=== PATIENT | male | born 2000 | race Caucasian/White ===

== ENCOUNTER 2024-04-01 15:53 | Emergency (ER) | payer OTHER, BC ==
[2024-04-01 15:59] VITALS: RESP 20; TEMP 98.6
--- NOTE | 2024-04-01 16:10 | ED ---
General Adult HPI - General Source: patient, RN notes reviewed Mode of arrival: ambulatory Limitations: no limitations <Jennifer Mendoza - Last Filed: 04/01/24 16:08> - General Source: patient, RN notes reviewed Mode of arrival: ambulatory Limitations: no limitations <Vishal Horvath - Last Filed: 04/01/24 17:06> - General Chief complaint: Back Pain/Injury Stated complaint: lower back pain Time Seen by Provider: 04/01/24 16:00 - History of Present Illness Initial comments: Quick note: 23-year-old male presents to the emergency department for evaluation of back pain. Assessment ongoing for 2 weeks but has been getting worse. He states that he was prescribed anti-inflammatories and muscle relaxers by his PCP at that time which was working but is no longer helping. Denies loss of bowel or bladder function. He reports radiation of pain down his leg. (Jennifer Mendoza) Patient is a 23-year-old male present to the emergency department with concerns for back pain. Onset of symptoms was 2 to 3 weeks ago while lifting at work. Patient frequently lifts large tires. Patient has had tightness and discomfort lower back, more on the right side with some radiation towards the right leg. No weakness or loss of sensation. No incontinence or retention of bowel or bladder product. Patient has had some minimal lower back problems in the past however nothing ever significant. Discomfort does increase with movement and lifting, patient has been trying to avoid lifting. Patient has tried muscle relaxers and Motrin 800 without much improvement (Vishal Horvath) - Related Data Previous Rx's Medication Instructions Recorded predniSONE [Deltasone] 20 mg PO BID #10 tab 04/01/24 Allergies Allergy/AdvReac Type Severity Reaction Status Date / Time No Known Allergies Allergy Verified 04/01/24 15:59 Review of Systems ROS Other: All systems not noted in ROS Statement are negative. <Jennifer Mendoza - Last Filed: 04/01/24 16:08> ROS Other: All systems not noted in ROS Statement are negative. Constitutional: Denies: fever Eyes: Denies: eye pain ENT: Denies: ear pain Respiratory: Denies: cough, dyspnea Cardiovascular: Denies: chest pain Gastrointestinal: Denies: abdominal pain Musculoskeletal: Reports: as per HPI, back pain <Vishal Horvath - Last Filed: 04/01/24 17:06> ROS Statement: Those systems with pertinent positive or pertinent negative responses have been documented in the HPI. Past Medical History Past Medical History: No Reported History History of Any Multi-Drug Resistant Organisms: None Reported Past Surgical History: No Surgical Hx Reported Past Psychological History: Anxiety Smoking Status: Current every day smoker Past Alcohol Use History: Occasional Past Drug Use History: Marijuana <Jennifer Mendoza - Last Filed: 04/01/24 16:08> General Exam Limitations: no limitations <Jennifer Mendoza - Last Filed: 04/01/24 16:08> Limitations: no limitations General appearance: alert, in no apparent distress Head exam: Present: normocephalic Eye exam: Present: normal appearance Neck exam: Present: normal inspection Respiratory exam: Present: normal lung sounds bilaterally Cardiovascular Exam: Present: regular rate, normal rhythm Expanded Peripheral pulses: 2+: Posterior Tibialis (R), Posterior Tibialis (L) GI/Abdominal exam: Present: soft. Absent: tenderness, pulsatile mass Extremities exam: Present: normal inspection Back exam: Present: other (Minimal tenderness and muscle spasm right paravertebral) Neurological exam: Present: alert. Absent: motor sensory deficit Expanded Motor strength exam: RLE: 5, LLE: 5 Psychiatric exam: Present: normal affect, normal mood Skin exam: Present: normal color <Vishal Horvath - Last Filed: 04/01/24 17:06> - General Exam Comments Initial Comments: Visual Physical Exam Vital signs reviewed General: Well-appearing, nontoxic, no acute distress. Head: Normocephalic, atraumatic Eyes: PERRLA, EOMI ENT: Airway patent Chest: Nonlabored breathing Skin: No visual rash, normal skin tone Neuro: Alert and oriented 3 Musculoskeletal: No gross abnormalities (Jennifer Mendoza) Course Vital Signs 04/01/24 15:55 Temperature 98.6 F Pulse Rate 93 Respiratory 20 Rate Blood Pressure 150/80 O2 Sat by Pulse 99 Oximetry Medical Decision Making <Jennifer Mendoza - Last Filed: 04/01/24 16:08> <Vishal Horvath - Last Filed: 04/01/24 17:06> - Medical Decision Making Quick note preformed and electronically signed by Jennifer Mendoza PA-C (Jennifer Mendoza) MDM back was pt. sent in by a medical professional or institution (SUSSY Prasad, HEALTH SCIENCE WRITER, urgent care, hospital, or residential...) When possible be specific @ -Patient states he was sent here by his primary care physician Did you speak to anyone other than the patient for history (EMS, parent, family, police, friend...)? What history was obtained from this source @ -Family is present and has medications provided by primary care physician and states the patient was sent here from the Did you review nursing and triage notes (agree or disagree)? Why? @ -I reviewed and agree with nursing and triage notes Were old charts reviewed (outside hosp., previous admission, EMS record, old EKG, old radiological studies, urgent care reports/EKG's, residential records)? Report findings @ -Medications reviewed from primary care physician Differential Diagnosis (chest pain, altered mental status, abdominal pain women, abdominal pain men, vaginal bleeding, weakness, fever, dyspnea, syncope, headache, dizziness, GI bleed, back pain, seizure, CVA, palpatations, mental health, musculoskeletal)? @ -Differential Back Pain: Strain, zoster, cauda equina syndrome, epidural abscess, vertebral osteomyelitis, discitis, fracture, subluxation, disc herniation, DJD, spinal stenosis, dissection, AAA, pancreatitis, peptic ulcer disease, pyelonephritis, kidney stone, this is not meant to be an all-inclusive list. EKG interpreted by me (3pts min.). @ -As above X-rays interpreted by me (1pt min.). @ -Lumbar x-rays without acute abnormality CT interpreted by me (1pt min.). @ -None done U/S interpreted by me (1pt. min.). @ -None done What testing was considered but not performed or refused? (CT, X-rays, U/S, labs)? Why? @ -None What meds were considered but not given or refused? Why? @ -None Did you discuss the management of the patient with other professionals (professionals i.e. SUSSY Prasad, HEALTH SCIENCE WRITER, lab, RT, psych nurse, social secretary, sports physiotherapist, teacher, appeals officer, outpatient case manager)? Give summary @ -No Was smoking cessation discussed for >3mins.? @ -No Was critical care preformed (if so, how long)? @ -No Were there social determinants of health that impacted care today? How? (Homelessness, low income, unemployed, alcoholism, drug addiction, transportation, low edu. Level, literacy, decrease access to med. care, group home, rehab)? @ -No Was there de-escalation of care discussed even if they declined (Discuss DNR or withdrawal of care, Hospice)? DNR status @ -No What co-morbidities impacted this encounter? (DM, HTN, Smoking, COPD, CAD, Cancer, CVA, ARF, Chemo, Hep., AIDS, mental health diagnosis, sleep apnea, morbid obesity)? @ -None Was patient admitted / discharged? Hospital course, mention meds given and route, prescriptions, significant lab abnormalities, going to OR and other pertinent info. @ -Patient presents with 2 to 3 weeks lower back pain with radiation to right lower leg. Evaluation, history and x-rays otherwise unremarkable. Patient will be discharged with trial for steroids and recommended follow-up Undiagnosed new problem with uncertain prognosis? @ -No Drug Therapy requiring intensive monitoring for toxicity (Heparin, Nitro, Insulin, Cardizem)? @ -No Were any procedures done? @ -No Diagnosis/symptom? @ -Low back pain Acute, or Chronic, or Acute on Chronic? @ -Acute Uncomplicated (without systemic symptoms) or Complicated (systemic symptoms)? @ -Default Side effects of treatment? @ -No Exacerbation, Progression, or Severe Exacerbation? @ -No Poses a threat to life or bodily function? How? (Chest pain, [place], [place], pneumonia, PE, COPD, DKA, ARF, appy, cholecystitis, CVA, Diverticulitis, Homicidal, Suicidal, threat to staff... and all critical care pts) @ -No (Vishal Horvath) Disposition <Jennifer Mendoza - Last Filed: 04/01/24 16:08> Is patient prescribed a controlled substance at d/c from ED?: No Time of Disposition: 17:05 <Vishal Horvath - Last Filed: 04/01/24 17:06> Clinical Impression: Low back pain Disposition: HOME SELF-CARE Condition: Stable Instructions (If sedation given, give patient instructions): Acute Low Back Pain (ED) Additional Instructions: Please do follow-up with primary care physician in the next couple of days for recheck. Consider physical therapy. Avoid lifting. Return for increased pain, loss of control of bowel or bladder, weakness, loss of sensation, worsening symptoms, fevers, or other concerns. Prescription for steroids sent to pharmacy. Prescriptions: predniSONE [Deltasone] 20 mg PO BID #10 tab Referrals: Susu Craven MD [Primary Care Provider] - 1-2 days
--- NOTE | 2024-04-01 16:27 | XR ---
EXAMINATION TYPE: XR lumbosacral spine min 4V DATE OF EXAM: 04/01/2024 CLINICAL HISTORY: Pain TECHNIQUE: Frontal, lateral, and oblique images of the lumbar spine are obtained. COMPARISON: None FINDINGS: There are 5 lumbar type vertebral bodies identified. The lumbar spine shows satisfactory alignment without evidence of acute fracture or dislocation. Vertebral body heights and disk space he ights are within normal limits. The oblique images appear within normal limits. The overlying soft tissue appears unremarkable. IMPRESSION: Unremarkable study. [facility], , 04/01/2024 4:25 PM
[2024-04-01] MEDS: HYDROmorphone 1 MG/ML 1 ML SYRINGE IM STA (17:05)
[2024-04-01] MEDS: DEXAMETHASONE SOD PHOSPHATE 10 MG/ML 1 ML VIAL IM STA (17:06)
[2024-04-01 17:17] VITALS: BP 103/61; PULSE 108
== END 2024-04-01 17:17 | disposition home or self-care (01) ==
LOC: EC 15:53
DX: M54.50 Low back pain, unspecified (principal); F17.200 Nicotine dependence, unspecified, uncomplicated
CPT/HCPCS: 72110; 99283; 96372 ×2; J1100; J1171